=== PATIENT | female | born 1965 | race Two or more races ===

== ENCOUNTER → 2016-11-08 | Outpatient (CLI) | payer BC ==
--- NOTE | 2016-11-12 08:00 | XR ---
Left foot HISTORY: Injury, pain and swelling 3 views of the left foot Bone mineralization, joint spaces and alignment are maintained. There is overlying artifact. Metallic foreign body is present at the volar aspect of the forefoot which may be within the overlying clothi ng or superficial, correlate. IMPRESSION: No fracture or dislocation. Suspect artifact.
== END ==
LOC: RADXRYALE 12:18
PROVIDERS: ATTEND Internal Medicine
DX: M79.672 Pain in left foot (principal)

== ENCOUNTER → 2017-02-07 | Outpatient (CLI) | payer BC ==
--- NOTE | 2017-02-07 10:45 | US ---
EXAMINATION TYPE: US abdomen complete DATE OF EXAM: 02/07/2017 COMPARISON: NONE CLINICAL HISTORY: R10.31 RT LOWER QUADRANT ABD PAIN. EXAM MEASUREMENTS: Liver Length: 14.3 cm Gallbladder Wall: 0.2 cm CBD: 0.4 cm Spleen: 9.9 cm Right Kidney: 11.0 x 4.8 x 5.3 cm Left Kidney: 10.9 x 6.1 x 6.5 cm Pancreas: visualized portions wnl Liver: somewhat coarse echotexture with poor visualization of the portal triads. This finding limits evaluation for underlying hepatic masses. Gallbladder: No stones seen Evidence for sonographic Keita's sign: No CBD: wnl Spleen: wnl Right Kidney: No hydronephrosis or masses seen Left Kidney: No hydronephrosis or masses seen Upper IVC: wnl Abd Aorta: wnl The intrahepatic portion of the IVC and proximal abdominal aorta are within normal limits. There is no evidence of cholelithiasis. Common bile duct is unremarkable. The visualized portions of the melchor creas are homogenous. The spleen is unremarkable. Kidneys are symmetric and free of hydronephrosis. No renal lesions are seen. IMPRESSION: Mildly coarsened echotexture of the hepatic parenchyma, which most commonly relates to mi ld hepatic steatosis.
== END ==
LOC: RADUSWWP 10:10
PROVIDERS: ATTEND Internal Medicine
DX: K76.0 Fatty (change of) liver, not elsewhere classified (principal)
CPT/HCPCS: 76700

== ENCOUNTER → 2017-07-09 | Outpatient (CLI) | payer BC ==
--- NOTE | 2017-07-10 11:25 | MM ---
Reason for exam: screening (asymptomatic). Last mammogram was performed 1 year and 5 months ago. History: Family history of breast cancer in grandmother. Benign US biopsy breast VAD LT of the left breast, July 15, 2014. Physical Findings: A clinical breast exam by your physician is recommended on an annual basis and results should be correlated with mammographic findings. MG 3D Screening Mammo W/Cad Bilateral CC and MLO view(s) were taken. Prior study comparison: February 12, 2016, bilateral MG screening mammo w CAD. July 15, 2014, right breast MG diagnostic mammo RT w CAD. The breast tissue is extremely dense which could obscure a lesion on mammography. Stable benign calcifications. Enlarging cysts left breast. No significant changes when compared with prior studies. ASSESSMENT: Benign, BI-RAD 2 RECOMMENDATION: Routine screening mammogram of both breasts in 1 year.
== END | disposition home or self-care (01) ==
LOC: RADMAMWWP 09:21
PROVIDERS: ATTEND Internal Medicine
DX: Z12.31 Encounter for screening mammogram for malignant neoplasm of breast (principal)
CPT/HCPCS: 77063; 77067

== ENCOUNTER → 2017-10-03 | Outpatient (CLI) | payer BC ==
--- NOTE | 2017-10-03 14:36 | CT ---
EXAMINATION TYPE: CT abdomen wo/w con DATE OF EXAM: 10/03/2017 COMPARISON: Ultrasound abdomen 09/25/2017 HISTORY: Patient complains of "fatty liver," RUQ pain, and epigastric pain. CT DLP: 482 mGycm Automated exposure control for dose reduction was used. TECHNIQUE: Helical acquisition of images was performed from the lung bases through the top of iliac crest to include entire abdomen. CONTRAST: Performed with Oral Contrast and with IV Contrast, patient injected with 100 mL of Isovue 300. FINDINGS: LUNG BASES: No significant abnormality is appreciated. LIVER/GB: Tiny 3 mm cyst lateral aspect medial segment left hepatic lobe. Focal fat left hepatic lobe lateral segment adjacent to the falciform ligament resulting in pseudolesion on ultrasound. Mild hep atic steatosis. Gallbladder is unremarkable. PANCREAS: No significant abnormality is seen. SPLEEN: No significant abnormality is seen. ADRENALS: No significant abnormality is seen. KIDNEYS: No significant abnormality is seen. BOWEL: No significant abnormality is seen. LYMPH NODES: No significant abnormality is seen. OSSEOUS STRUCTURES: No significant abnormality is seen. FREE AIR: No free air is visualized. OTHER: IMPRESSION: 1. FOCAL FAT ADJACENT TO THE FALCIFORM LIGAMENT RESULTING IN PSEUDOLESION AT ULTRASOUND. SMALL CYST L EFT HEPATIC LOBE NOTED 2. MILD HEPATIC STEATOSIS..
== END ==
LOC: RADCTMAIN 13:10
PROVIDERS: ATTEND Internal Medicine
DX: K76.89 Other specified diseases of liver (principal); K76.0 Fatty (change of) liver, not elsewhere classified; L81.4 Other melanin hyperpigmentation
CPT/HCPCS: 74170; Q9967

== ENCOUNTER → 2018-08-24 | Outpatient (CLI) | payer BC ==
--- NOTE | 2018-08-25 07:52 | MM ---
Reason for exam: screening (asymptomatic). Last mammogram was performed 1 year and 2 months ago. History: Family history of breast cancer in grandmother. Benign US biopsy breast VAD LT of the left breast, July 15, 2014. Physical Findings: A clinical breast exam by your physician is recommended on an annual basis and results should be correlated with mammographic findings. MG 3D Screening Mammo W/Cad Bilateral CC and MLO view(s) were taken. Prior study comparison: July 09, 2017, bilateral MG 3d screening mammo w/cad. February 12, 2016, bilateral MG screening mammo w CAD. The breast tissue is heterogeneously dense. This may lower the sensitivity of mammography. Stable benign calcifications. Waxing and waning masses in the left breast reflect cysts. No significant changes when compared with prior studies. ASSESSMENT: Benign, BI-RAD 2 RECOMMENDATION: Routine screening mammogram of both breasts in 1 year.
== END | disposition home or self-care (01) ==
LOC: RADMAMWWP 09:13
PROVIDERS: ATTEND Internal Medicine
DX: Z12.31 Encounter for screening mammogram for malignant neoplasm of breast (principal)
CPT/HCPCS: 77063; 77067

== ENCOUNTER → 2019-12-27 | Outpatient (CLI) | payer OTHER ==
--- NOTE | 2019-12-27 14:39 | US ---
EXAMINATION TYPE: US pelvis complete transvag DATE OF EXAM: 12/27/2019 COMPARISON: NONE CLINICAL HISTORY: N95.0 POSTMENOPAUSAL BLEEDING. Spotting for 3 days 1 month ago, pelvic pain TECHNIQUE: Transvaginal (TV) and Transabdominal (TA) . Transabdominal sonographic images of the pel vis were acquired. Transvaginal sonographic images were medically necessary to better assess the fol lowing anatomy: uterus and ovaries Date of LMP: 1 year ago EXAM MEASUREMENTS: Uterus: 6.4 x 3.9 x 4.4 cm Endometrial Stripe: 0.5 cm Right Ovary: 2.1 x 1.4 x 1.5 cm Left Ovary: 3.3 x 1.7 x 2.0 cm 1. Uterus: Anteverted heterogeneous in appearance with Nabothian cysts 2. Endometrium: appears wnl 3. Right Ovary: appears wnl 4. Left Ovary: hypoechoic area = 1.6 x 1.4 x 1.5cm 5. Bilateral Adnexa: wnl 6. Posterior cul-de-sac: wnl IMPRESSION: Nonspecific heterogenous uterine myometrium could reflect small leiomyomatous change.
== END | disposition home or self-care (01) ==
LOC: RADUSWWP 13:44
PROVIDERS: ATTEND Internal Medicine
DX: N95.0 Postmenopausal bleeding (principal)
CPT/HCPCS: 76830; 76856

== ENCOUNTER 2024-08-25 09:38 | Day surgery (SDC) | payer BC, OTHER ==
[2024-08-23 10:12] VITALS: BMI 31.1
[~2024-08-25 09:38] MED LIST: HYDROmorphone 0.5 MG/0.5 ML SYRINGE IVP PRN; ONDANSETRON 4 MG/2 ML VIAL IVP PRN; Pre Op ABX Message 1 EACH MISC MISCELLANE ONE
[2024-08-25] MEDS: IV FLUID CONTINUATION 1,000 ML IV ONE (10:08)
[2024-08-25] MEDS: DEXAMETHASONE SOD PHOSPHATE 4 MG/ML 1 ML VIAL IV ONE (10:24)
[2024-08-25] MEDS: FAMOTIDINE 20 MG/2 ML VIAL IV PRN (10:24)
[2024-08-25] MEDS: LACTATED RINGERS 1,000 ML IV SCH (10:24)
[2024-08-25] MEDS: ONDANSETRON 4 MG/2 ML VIAL IVP ONE (10:25)
[2024-08-25] MEDS ORDERED: fentaNYL (PF) 50 MCG/ML 2 ML AMP ONE (11:43)
[2024-08-25] MEDS ORDERED: DEXAMETHASONE SOD PHOSPHATE 10 MG/ML 1 ML VIAL ONE (11:43)
[2024-08-25] MEDS ORDERED: PROPOFOL 10 MG/ML 20 ML VIAL IV ONE (11:43)
[2024-08-25] MEDS ORDERED: MIDAZOLAM 2 MG/2 ML VIAL ONE (11:43)
[2024-08-25] MEDS ORDERED: SUCCINYLCHOLINE CHLORIDE 200 MG/10 ML VIAL IV ONE (11:43)
--- NOTE | 2024-08-25 12:33 | P.OP ---
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 Each approximate 5 mm in length and protruding approximately 3 mm Operative Findings: see above on indications Description of Procedure: patient brought in the operative suite and placed in a supine position. The patient underwent induction of general anesthesia with oral endotracheal intubation without difficulty. The patient was prepped and draped in usual aseptic fashion. Tooth guard was placed and direct endoscopy was performed with systematic evaluation of the base of tongue vallecula both piriform sinuses post cricoid area and endolarynx. With the larynx in good visualization the laryngoscope was placed in suspension and the Zeiss microscope was brought into position to visualize the true vocal cords. The above-noted lesions were noted. The right vocal cord polyp was grasped with a microcup forceps and excised from the underlying true vocal cord superficial to the lamina propria grossly entirely with microcup scissors dissection technique. Hemostasis was gained spontaneously. Attention was then turned to the left with a left vocal cord polyp was removed as the right had been. Again hemostasis was gained spontaneously. Good hemostasis noted the patient was suctioned in the larynx and hypopharynx and laryngoscope and tooth guard removed. The patient was then allowed to emerge from general anesthesia having tolerated procedure well was extubated in the operating suite and transferred to the postop recovery area in satisfactory condition.
[2024-08-25 12:39] VITALS: TEMP 97.6
[2024-08-25 12:49] VITALS: RESP 16
[2024-08-25 13:51] VITALS: BP 144/89; PULSE 50
== END 2024-08-25 14:10 | disposition home or self-care (01) ==
LOC: OR 09:38
PROVIDERS: ATTEND Otolaryngology
DX: J38.1 Polyp of vocal cord and larynx (principal); K21.9 Gastro-esophageal reflux disease without esophagitis; E66.9 Obesity, unspecified; Z68.30 Body mass index [BMI] 30.0-30.9, adult; F17.210 Nicotine dependence, cigarettes, uncomplicated; Z79.899 Other long term (current) drug therapy; Z91.040 Latex allergy status; Z91.048 Other nonmedicinal substance allergy status
CPT/HCPCS: 88305; 31541; J2250; J0330; J1100 ×2; J2405; J3010; J3490; J2704